=== PATIENT | female | born 1985 | race Caucasian/White ===

== ENCOUNTER 2017-01-25 17:00 | Observation (INO) | payer BC ==
[2017-01-25 18:08] LABS: HEMOGLOBIN 11.4 gm/dl (12.3-15.3); RED BLOOD COUNT 3.96 M/UL (4.00-5.10); WHITE BLOOD COUNT 11.6 K/UL (4.5-11.0)
[2017-01-25 18:20] LABS: BUN/CREATININE RATIO 23 (0-10)
== END 2017-01-26 08:15 | disposition home or self-care (01) ==
LOC: GENOP 17:00 → OB 17:50
PROVIDERS: ADMIT Obstetrics & Gynecology
DX: O13.3 Gestational [pregnancy-induced] hypertension without significant proteinuria, third trimester (principal); O24.410 Gestational diabetes mellitus in pregnancy, diet controlled; Z3A.34 34 weeks gestation of pregnancy; Z79.899 Other long term (current) drug therapy; Z87.891 Personal history of nicotine dependence
CPT/HCPCS: 36415; 59025; 80053; 81001; 82962; 85025; G0378; G0463; J7120